=== PATIENT | female | born 1985 | race African-American/Black ===

== ENCOUNTER → 2018-09-25 | Outpatient (REF) | payer OTHER ==
[2018-09-25 13:19] LABS: INFLUENZA A AMPLIFICATION POSITIVE (NEGATIVE); INFLUENZA B AMPLIFICATION NEGATIVE (NEGATIVE)
== END ==
LOC: M LAB REF 12:39
PROVIDERS: ATTEND Physician Assistant
DX: J11.1 Influenza due to unidentified influenza virus with other respiratory manifestations (principal)

== ENCOUNTER → 2019-12-30 | Outpatient (REF) | payer OTHER ==
[2019-12-30 17:55] LABS: PERCENT SATURATION 28.4 % (13.2-45.0)
== END ==
LOC: M LAB REF 16:42
PROVIDERS: ATTEND Internal Medicine
DX: D64.9 Anemia, unspecified (principal)

== ENCOUNTER → 2020-02-03 | Outpatient (CLI) | payer OTHER ==
[2020-02-03 11:18] LABS: FOLLICLE STIMULATING HORMONE 5.3 mIU/mL; LUTEINIZING HORMONE 5.4 mIU/mL
== END ==
LOC: M LAB 09:49
PROVIDERS: ATTEND Internal Medicine Endocrinology, Diabetes & Metabolism
DX: L65.9 Nonscarring hair loss, unspecified (principal)

== ENCOUNTER → 2021-08-08 | Outpatient (CLI) | payer OTHER ==
--- NOTE | 2021-08-08 11:28 | REP ---
INDICATION: ABD DISTENTION. COMPARISON: 01/04/2020 TECHNIQUE: Transvesical and transvaginal technique FINDINGS: The uterus measures 7.1 x 3.8 x 5 cm. The parenchymal echo pattern is within normal limits. There is a specular reflection within the endometrial cavity consistent with an IUD which appears well positioned. There is a small amount of fluid in the endometrial cavity. This is nonspecific. The right ovary measures 2 x 1.9 x 1.4 cm and is within normal limits with an RI 0.51 Left ovary measures 2.9 x 1.5 x 2.1 cm and is within normal limits with an RI 0.37. There is no free fluid in cul-de-sac. Urinary bladder measures 6 x 4 x 7 cm. IMPRESSION: Within normal limits. IUD in place. <Electronically signed by Yaakov Romero > 08/08/21 1122
== END ==
LOC: M RAD 10:40
PROVIDERS: ATTEND Obstetrics & Gynecology
DX: R14.0 Abdominal distension (gaseous) (principal); Z97.5 Presence of (intrauterine) contraceptive device

== ENCOUNTER 2022-04-02 13:46 | Emergency (ER) | payer OTHER ==
[~2022-04-02] VITALS: Ht 157.5 cm; Wt 59.8 kg
[2022-04-02] MEDS ORDERED: RIZA10TA2 (13:55)
[2022-04-02] MEDS ORDERED: BUSP5TA (13:55)
[2022-04-02] MEDS ORDERED: LEVOTAB10 (13:55)
[2022-04-02 16:01] LABS: BASO % 0.6 % (0.0-1.0); EOS % 0.6 % (0.0-3.0); HEMATOCRIT 40.1 % (36.0-47.0); HEMOGLOBIN 13.5 g/dl (12.0-15.5); LYMPH # 1.4 10^3/uL (1.5-5.0); LYMPH % 27.8 % (24.0-44.0); MEAN CORPUSCULAR HEMOGLOBIN 31.5 pg (27.0-33.0); MEAN CORPUSCULAR HGB CONC 33.7 g/dl (32.0-36.5); MEAN CORPUSCULAR VOLUME 93.7 fl (80.0-96.0); MONO # 0.5 10^3/uL (0.0-0.8); MONO % 9.7 % (2.0-8.0); NEUTROPHILS # 3.2 10^3/uL (1.5-8.5); NEUTROPHILS % 61.1 % (36.0-66.0); PLATELET COUNT, AUTOMATED 260 10^3/uL (150-450); RED BLOOD COUNT 4.28 10^6/uL (4.00-5.40); WHITE BLOOD COUNT 5.2 10^3/uL (4.0-10.0)
[2022-04-02 16:25] LABS: INR 1.06; PROTHROMBIN TIME 14.2 SECONDS (12.7-14.5)
[2022-04-02 16:26] LABS: PARTIAL THROMBOPLASTIN TIME 29.4 SECONDS (25.9-37.0)
[2022-04-02 16:32] LABS: FREE T4 0.84 NG/DL (0.76-1.46); MAGNESIUM LEVEL 2.1 MG/DL (1.8-2.4)
[2022-04-02 17:12] LABS: BLOOD UREA NITROGEN 10 MG/DL (7-18); CALCIUM LEVEL 9.1 MG/DL (8.5-10.1); CARBON DIOXIDE LEVEL 30 MEQ/L (21-32); CHLORIDE LEVEL 105 MEQ/L (98-107); GLOMERULAR FILTRATION RATE > 60.0 (>60); GLUCOSE, FASTING 84 MG/DL (70-100); POTASSIUM SERUM 3.7 MEQ/L (3.5-5.1); SODIUM LEVEL 137 MEQ/L (136-145)
[2022-04-02 17:13] LABS: HCG, SERUM QUALITATIVE NEGATIVE (NEGATIVE)
[2022-04-02 17:15] LABS: CK-MB VALUE MASS < 1.0 NG/ML (<3.6); CPK CREATINE PHOSPHOKINASE 152 U/L (26-192); MB/CK RELATIVE INDEX 0.66 (< OR =4)
[2022-04-02 18:17] VITALS: BP 115/78
== END 2022-04-02 18:50 | disposition home or self-care (01) ==
LOC: M ED 13:46
DX: R55 Syncope and collapse (principal); I45.19 Other right bundle-branch block

== ENCOUNTER → 2022-06-05 | Outpatient (REF) | payer OTHER ==
[~2022-06-05] MED LIST: BUSP5TA; LEVOTAB10; RIZA10TA2
== END ==
LOC: M SFHCWAGY 17:19
PROVIDERS: ATTEND Nurse Practitioner Family
DX: Z12.4 Encounter for screening for malignant neoplasm of cervix (principal)
CPT/HCPCS: 87624; G0123

== ENCOUNTER → 2023-03-26 | Outpatient (REF) | payer OTHER | LOC: M LAB REF 12:16 | PROVIDERS: ATTEND Internal Medicine | DX: D72.819 Decreased white blood cell count, unspecified (principal) ==

== ENCOUNTER → 2023-10-21 | Outpatient (CLI) | payer OTHER ==
[2023-10-21 15:10] LABS: HIV 1&2 SCREEN NEGATIVE (NEGATIVE)
[2023-10-21 15:17] LABS: HEPATITIS B CORE ANTIBODY IGM NEGATIVE (NEGATIVE)
[2023-10-21 15:22] LABS: HEPATITIS C VIRUS ABY INDEX 0.03 INDEX (<0.8)
== END ==
LOC: M PLALAB 10:08
PROVIDERS: ATTEND Nurse Practitioner Family
DX: Z01.411 Encounter for gynecological examination (general) (routine) with abnormal findings (principal); Z11.3 Encounter for screening for infections with a predominantly sexual mode of transmission; Z12.39 Encounter for other screening for malignant neoplasm of breast; Z11.51 Encounter for screening for human papillomavirus (HPV); R59.9 Enlarged lymph nodes, unspecified; R68.82 Decreased libido; Z79.899 Other long term (current) drug therapy; Z97.5 Presence of (intrauterine) contraceptive device
CPT/HCPCS: 36415; 86705; 86780; 86803; 87340; 87389; 87490; 87590; 87624; 87661; G0123; G0463

== ENCOUNTER → 2023-11-04 | Outpatient (CLI) | payer OTHER | LOC: M WHC 07:23 | PROVIDERS: ATTEND Nurse Practitioner Family | DX: R59.9 Enlarged lymph nodes, unspecified (principal) ==

== ENCOUNTER 2024-08-04 08:35 | Day surgery (SDC) | payer OTHER ==
[~2024-08-04] VITALS: Ht 157.5 cm; Wt 59.2 kg
[~2024-08-04 08:35] MED LIST changes: -LEVOTAB10; +LEVOTAB10 PO; +OMEG10002 PO; +PROBCAP14 PO; +SAFF176. PO; +SPIR-10 PO; +THERTAB52 PO; +UBIQ200C3 PO; +VITA100093 PO
[2024-08-04] MEDS ORDERED: LIDOCAINE 2% 100MG/5ML SDV (FOR ANES.) As Ordered ONE (08:59)
[2024-08-04] MEDS ORDERED: propofoL 200 MG/20 ML VIAL As Ordered ONE (08:59)
[2024-08-04 10:11] VITALS: TEMP 97
[2024-08-04 10:30] VITALS: BP 119/72; O2SAT 99
== END 2024-08-04 10:33 | disposition home or self-care (01) ==
LOC: M OPP 08:35
PROVIDERS: ATTEND Surgery
DX: K58.2 Mixed irritable bowel syndrome (principal); K21.9 Gastro-esophageal reflux disease without esophagitis; Z79.899 Other long term (current) drug therapy

== ENCOUNTER → 2024-10-25 | Outpatient (CLI) | payer OTHER | LOC: M WHC 09:34 | PROVIDERS: ATTEND Nurse Practitioner Family | DX: Z12.31 Encounter for screening mammogram for malignant neoplasm of breast (principal); R92.333 Mammographic heterogeneous density, bilateral breasts ==

== ENCOUNTER → 2024-10-25 | Outpatient (CLI) | payer OTHER ==
[2024-10-25 15:05] LABS: Trichomonas vaginalis (AMP) NOT DETECTED (NEGATIVE)
[2024-10-25 15:28] LABS: GC DNA AMPLIFICATION NEGATIVE (NEGATIVE)
[2024-10-25 15:35] LABS: HIV 1&2 SCREEN NEGATIVE (NEGATIVE)
[2024-10-25 15:43] LABS: HEPATITIS B CORE ANTIBODY IGM NEGATIVE (NEGATIVE); HEPATITIS C VIRUS ABY INDEX < 0.02 INDEX (<0.8)
[2024-10-25 15:59] LABS: GC DNA AMPLIFICATION NEGATIVE (NEGATIVE)
== END ==
LOC: M PLALAB 11:43
PROVIDERS: ATTEND Nurse Practitioner Family
DX: Z11.3 Encounter for screening for infections with a predominantly sexual mode of transmission (principal)

== ENCOUNTER → 2024-11-07 | Outpatient (CLI) | payer OTHER | LOC: M WHC 13:41 | PROVIDERS: ATTEND Nurse Practitioner Family | DX: Z12.31 Encounter for screening mammogram for malignant neoplasm of breast (principal); N60.11 Diffuse cystic mastopathy of right breast; N60.12 Diffuse cystic mastopathy of left breast | CPT/HCPCS: 76641; 77066; G0279 ==

== ENCOUNTER → 2024-11-17 | Outpatient (CLI) | payer OTHER ==
[2024-11-17 11:02] VITALS: TEMP 98.3
[2024-11-17 11:41] VITALS: BP 120/82
== END ==
LOC: M WHCPRO 10:56
PROVIDERS: ATTEND Nurse Practitioner Family
DX: R92.8 Other abnormal and inconclusive findings on diagnostic imaging of breast (principal); N63.22 Unspecified lump in the left breast, upper inner quadrant

== ENCOUNTER → 2025-04-14 | Outpatient (REF) | payer OTHER ==
[2025-04-14 15:52] LABS: ATYPICAL LYMPH 10 % (0-5); BASOPHILS 2 % (0-1); EOSINOPHILS 2 % (0-3); LYMPHOCYTES 32 % (16-44); MONOCYTES 10 % (0-5); NEUTROPHILS 44 % (28-66)
[2025-04-14 15:53] LABS: PLATELET ESTIMATE NORMAL (NORMAL)
== END ==
LOC: M LAB REF 14:56
PROVIDERS: ATTEND Internal Medicine
DX: D72.819 Decreased white blood cell count, unspecified (principal)

== ENCOUNTER → 2025-04-14 | Outpatient (REF) | payer OTHER ==
[2025-04-14 12:55] LABS: LUTEINIZING HORMONE 4.7 mIU/ML
== END ==
LOC: M LAB REF 12:18
PROVIDERS: ATTEND Internal Medicine
DX: L68.0 Hirsutism (principal)

== ENCOUNTER → 2025-05-17 | Outpatient (CLI) | payer OTHER | LOC: M WHC 08:16 | PROVIDERS: ATTEND Nurse Practitioner Family | DX: R92.8 Other abnormal and inconclusive findings on diagnostic imaging of breast (principal) | CPT/HCPCS: 76642; 77065; G0279 ==